=== PATIENT | male | born 2000 | race Caucasian/White ===

== ENCOUNTER → 2019-09-04 | Outpatient (CLI) | payer BC ==
--- NOTE | 2019-09-04 10:49 | Diagnostic Imaging Report ---
INDICATION: Hurt on 08/16 while running. [place] a pop. Continued pain. TECHNIQUE: Three views of the left ankle CORRELATION STUDY: None FINDINGS: The bony alignment is anatomic. The talar dome is intact. The ankle mortise is maintained. There is no acute fracture or dislocation. Soft tissues are unremarkable. IMPRESSION: Negative for acute bony abnormality of the ankle. Given continued symptoms, if further imaging evaluation is clinically warranted, MRI would be recommended for soft tissue assessment. Dictated by: Dictated on workstation # [id number]
== END ==
LOC: RAD 10:19
PROVIDERS: ATTEND Nurse Practitioner Family
DX: S99.912A Unspecified injury of left ankle, initial encounter (principal); Y93.02 Activity, running
CPT/HCPCS: 73610

== ENCOUNTER → 2021-05-27 | Outpatient (CLI) | payer BC, OTHER ==
--- NOTE | 2021-05-27 15:09 | Diagnostic Imaging Report ---
PROCEDURE: MRI lumbar spine. TECHNIQUE: Multiplanar, multisequence MRI of the lumbar spine was performed without contrast. INDICATION: Injury to the low back lifting weights. Patient now complains of low back pain. No prior studies are available for comparison. Curvature and alignment of the lumbar spine is normal. Vertebral body heights are maintained. No acute compression fracture is seen. There is a prominent Schmorl's node involving the superior endplate of the L2 vertebral body. There is fairly normal height and signal intensity to the lumbar intervertebral discs. The conus is unremarkable at the L1 level. T12-L1: The central canal and neural foramina are widely patent. L1-L2: No central canal or neural foraminal stenosis is identified. L2-L3: No central canal or neural foraminal stenosis is identified. L3-L4: Central canal is patent. There is some narrowing of the left lateral recess. There also appears to be mild bilateral neural foraminal narrowing. There is some ligamentous thickening present. L4-L5: Broad-based annular bulging is noted. There is indentation of the ventral thecal sac with very mild narrowing of the canal. There is significant narrowing of the bilateral lateral recesses. There is also moderate narrowing of the bilateral neural foramina. L5-S1: Central is patent. There is some mild narrowing of the lateral recesses bilaterally, particularly on the left. There is also [id number] bilateral neural foraminal narrowing. Paraspinous tissues are unremarkable. IMPRESSION: Mild central canal, lateral recess or neural foraminal narrowing described level by level above. Dictated by: Dictated on workstation # [id number]
== END ==
LOC: RAD 14:00
DX: M51.26 Other intervertebral disc displacement, lumbar region (principal); M48.061 Spinal stenosis, lumbar region without neurogenic claudication; M48.07 Spinal stenosis, lumbosacral region
CPT/HCPCS: 72148